=== PATIENT | male | born 1955 | race Caucasian/White ===

== ENCOUNTER → 2017-02-15 | Outpatient (CLI) | payer BC ==
--- NOTE | 2017-02-15 13:12 | PCVCIMAG ---
APPROVED REPORT Exam: Nuclear Stress Test Indication: CAD , Chest pain, Pre-Operative CV evaluation Patient Location: Out-Patient Stress Nurse: Lexi Hutchins RN, Johanna Callaway RN PR Tech:Lia WildLOIDA cookMT Ht: 5 ft 10 in Wt: 190 lbs BSA: 2.04 m2 HR: 63 bpm BP: 110/77 mmHg BMI: 27.2 Rhythm: SR Medical History Medical History: Hyperlipidemia, HTN, CVD, [place], CAD, CURRENT SMOKER, AGE Medications: Atrovastatin, Lisinopril, Metoprolol, Omeprazole Allergies: Morphine Previous Cardiac Procedures: PCI Pretest Chest Pain Characteristics: No chest pain Exercise History: Physically active Meds Held (24 hrs): Held all medications today. Stress Test Details Stress Test: Exercise stress testing was performed using a Marcelino protocol. HR Resting HR: 63 bpmMax Heart Rate (APMHR): 157 bpm Max HR Achieved: 146 bpmTarget HR (85% APMHR): 133 bpm % of APMHR: 92 Recovery HR: 86 bpm BP Resting BP: 110/77 mmHg Max BP: 143/67 mmHg ECG Resting ECG: Sinus Rhythm Stress ECG: Sinus Tachycardia ST Change: Non-ischemic Recovery ECG: Sinus Rhythm Clinical Reason for Termination: Dyspnea, Fatigue Stress Symptoms: Leg Fatigue, Dyspnea Exercise duration: 12 min 00 sec Exercise capacity: 13.4 METs Symptoms resolved during recovery. NM EXAM: Myocardial Perfusion REST/STRESS Imaging Protocol: Rest Tc-99m/Stress Tc-99m 1 day Resting Data Rest SPECT myocardial perfusion imaging was performed in supine position 45 minutes following the intravenous injection of 10.5 mCi of Tc-99m Sestamibi. Time of rest injection: 0800 Date: 02/15/2017 Administration Route: IV Administration Site: Right Wrist Exercise Stress At peak stress, the patient was injected intravenously with 34.7mCi of Tc-99m Sestamibi. Time of stress injection: 939 Date: 02/15/2017 Administration Route: IV Administration Site: Right AC Gated Stress SPECT was performed 45 minutes after stress injection. The images were gated to evaluate regional wall motion and calculate left ventricular ejection fraction. Study Quality Study: Good Study Data Post stress, the left ventricular ejection was 52%.. SSS: 11 SRS: 15 SDS: 0 TID = 1.05. Perfusion There is a medium area of moderately reduced uptake in the apical segment of the anterior wall which is seen on the stress images as well as the resting images. This area is hypokinetic and is most consistent with myocardial scar. Nuclear Conclusion ECG Findings: negative for ischemia Clinical Findings: negative for ischemia This study reveals an incomplete infarct in the distal anteroapical segment. This study is of low probability for inducible ischemia. There is mild segmental LV dysfunction, EF of 52% with hypokinesis of the apical segment.
== END | disposition home or self-care (01) ==
LOC: PCVCIMAG 07:50
PROVIDERS: ATTEND Internal Medicine Cardiovascular Disease
DX: Z01.810 Encounter for preprocedural cardiovascular examination (principal); I25.10 Atherosclerotic heart disease of native coronary artery without angina pectoris; R07.9 Chest pain, unspecified; I25.2 Old myocardial infarction; E78.5 Hyperlipidemia, unspecified; M19.90 Unspecified osteoarthritis, unspecified site; I10 Essential (primary) hypertension; Z72.0 Tobacco use; Z79.82 Long term (current) use of aspirin; Z79.01 Long term (current) use of anticoagulants; Z86.73 Personal history of transient ischemic attack (TIA), and cerebral infarction without residual deficits
CPT/HCPCS: 78452; 93017; A9500; G0463

== ENCOUNTER → 2018-02-16 | Outpatient (CLI) | payer BC ==
--- NOTE | 2018-02-16 09:10 | PCVCIMAG ---
APPROVED REPORT Study performed: 02/16/2018 08:03:38 EXAM: Comprehensive 2D, Doppler, and color-flow Echocardiogram Patient Location: Echo lab Room #: 2Status: routine BSA: 2.00 HR: 53 bpmBP: 106/62 mmHg Rhythm: Sinus Bradycardia Other Information Study Quality: Good Risk Factors: Cardiac Risk Factors: HTN, Hyperlipidemia, Smoking Indications CAD Hypertension/HDD Hx stent, old [place] 2D Dimensions IVSd: 9.70 (7-11mm)LVOT Diam: 22.64 (18-24mm) LVDd: 50.06 mm PWd: 8.50 (7-11mm)Ascending Ao: 33.44 (22-36mm) LVDs: 32.78 (25-40mm) Left Atrium: 38.98 (27-40mm) Aortic Root: 27.27 mm LV Single Plane 4CH: 62.66 % LV Single Plane 2CH: 71.81 % Biplane EF: 68.1 % Volumes Left Atrial Volume (Systole) Single Plane 4CH: 46.13 mLSingle Plane 2CH: 52.41 mL Biplane LA Volume: 50.00 mLLA ESV Index: 25.00 mL/m2 Aortic Valve AoV Peak Dewayne.: 1.53 m/s AO Peak Gr.: 9.31 mmHgLVOT Max P.44 mmHg LVOT Max V: 0.78 m/s VISHNU Vmax: 2.06 cm2 Mitral Valve E/A Ratio: 1.8 MV Decel. Time: 210.54 ms MV E Max Dewayne.: 0.61 m/s MV A Dewayne.: 0.34 m/s IVRT: 96.89 ms Pulmonary Valve PV Peak Dewayne.: 0.90 m/sPV Peak Gr.: 3.21 mmHg Pulmonary Vein P Vein S: 0.52 m/sP Vein A: 0.25 m/s P Vein D: 0.33 m/sP Vein A Dur.: 90.0 msec P Vein S/D Ratio: 1.58 Tricuspid Valve TR Peak Dewayne.: 1.77 m/s TR Peak Gr.: 12.49 mmHg TV Vmax: 0.58 m/sPA Pressure: 20.00 mmHg Left Ventricle The left ventricle is normal size. There is hypokinesis in the apical wall. There is normal left ventricular wall thickness. Left ventricular systolic function is normal. The left ventricular ejection fraction is within the normal range. LVEF is 55%. Right Ventricle The right ventricle is normal size. The right ventricular systolic function is normal. Atria The left atrium size is normal. The right atrium size is normal. Aortic Valve Aortic valve is trileaflet. The Aortic valve is mildly sclerotic. No aortic regurgitation is present. There is no aortic valvular stenosis. Mitral Valve The mitral valve is normal in structure. There is no mitral valve regurgitation noted. No evidence of mitral valve stenosis. Tricuspid Valve The tricuspid valve is normal in structure. Trace tricuspid regurgitation. No apparent pulmonary hypertension. Pulmonic Valve The pulmonary valve is normal in structure. There is no pulmonic valvular regurgitation. Great Vessels The aortic root is normal in size. The ascending aorta is normal in size. Aortic arch is normal in caliber. IVC is normal in size and collapses with >50% inspiration Pericardium There is no pericardial effusion. There is no pleural effusion. <Conclusion> The left ventricle is normal size. There is normal left ventricular wall thickness. Left ventricular systolic function is normal. The right ventricle is normal size. The left atrium size is normal. The Aortic valve is mildly sclerotic. There is no aortic valvular stenosis. There is no mitral valve regurgitation noted. Trace tricuspid regurgitation.
== END | disposition home or self-care (01) ==
LOC: PCVCIMAG 14:01
PROVIDERS: ATTEND Internal Medicine Cardiovascular Disease
DX: I25.10 Atherosclerotic heart disease of native coronary artery without angina pectoris (principal); I10 Essential (primary) hypertension; F17.200 Nicotine dependence, unspecified, uncomplicated
CPT/HCPCS: 93306

== ENCOUNTER → 2019-02-12 | Outpatient (CLI) | payer BC ==
--- NOTE | 2019-02-12 15:23 | PCVCIMAG ---
APPROVED REPORT Study performed: 02/12/2019 14:14:05 Exam: Comprehensive 2D, Doppler, and color-flow Echocardiogram Indication: CAD s/p PCI, HTN, HLP, TOBACCO USE Patient Location: Echo lab Stress Nurse: Lexi Hutchins RN Status: routine Ht: 5 ft 10 in HR: 69 bpm BP: 126/82 mmHg Rhythm: NSR Medical History Cardiac Risk Factors: HTN, Hyperlipidemia, Smoking Procedure The patient underwent an Exercise Stress Test using the Marcelino Protocol. Blood pressure, heart rate, and EKG were monitored. An Echocardiogram was performed by railroad signal technician in four stages in quad fashion. At peak stress, four selected images were obtained and placed side by side with resting images for comparison. Stress Test Details Stress Test: Exercise stress testing was performed using a Marcelino protocol. HR Resting HR: 69 bpmMax Heart Rate (APMHR): 155 bpm Max HR Achieved: 155 bpmTarget HR (85% APMHR): 131 bpm % of APMHR: 100 Recovery HR: 108 bpm HR response to stress: Normal HR response to stress BP Resting BP: 126/82 mmHg Max BP: 156/70 mmHg Recovery BP: 142/70 mmHg BP response to stress: Normal blood pressure response to stress. ECG Resting ECG: Sinus Rhythm Stress ECG: Sinus Rhythm ST Change: Non-ischemic Arrhythmia: PVCs Recovery ECG: Sinus Rhythm Recovery ST Change: Normal Recovery Arrhythmia: PVCs Clinical Reason for Termination: Maximal effort Stress Symptoms: Dyspnea Exercise duration: 12 min 31 sec Highest Stage Achieved: Stage 5: 5.0 mph at 18% grade. Exercise capacity: 15.1 METs Overall Exercise Capacity for Age: Good Scale: Active Angina Score: None Pre-Stress Echo The resting Echocardiogram showed normal left ventricular contractility with an estimated Ejection Fraction of about 50-55%. The resting echocardiogram demonstrated normal wall motion in all wall segments. 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 Post-Stress Echo The stress Echocardiogram showed normal left ventricular contractility with an estimated Ejection Fraction of about 60-65%. Compared to rest, there were no stress-induced wall motion abnormalities. Clinical No clinical or ECG evidence for ischemia. Conclusion Clinical Response: Non-ischemic Exercise Capacity: Superior Stress ECG Response: Non-ischemic Stress Echo Images: Non-ischemic The left ventricle is normal in size and wall thickness in both the rest and stress images. Other Information Study Quality: Adequate <Conclusion> The left ventricle is normal in size and wall thickness in both the rest and stress images.
== END | disposition home or self-care (01) ==
LOC: PCVCIMAG 14:27
PROVIDERS: ATTEND Internal Medicine Cardiovascular Disease
DX: I25.10 Atherosclerotic heart disease of native coronary artery without angina pectoris (principal); I10 Essential (primary) hypertension; F17.200 Nicotine dependence, unspecified, uncomplicated
CPT/HCPCS: 93325; 93351